=== PATIENT | female | born 1955 | race Caucasian/White ===

== ENCOUNTER 2016-12-25 15:01 | Inpatient (IN) | payer OTHER ==
[~2016-12-25] VITALS: Ht 156.2 cm; Wt 106.2 kg
[~2016-12-25 15:01] MED LIST: CETI10CA PO; CIPR500T94 PO; ESTR0.5T PO; FLUD0.1T PO; HYDR-971 PO; LEVO5TAB2 PO; METO1TAB PO; METO25PO2 MC; METR500T PO; NAPR500T3 PO; ONDA4TAB10 PO; TRAM50TA PO; flexeril
[2016-12-25 15:52] VITALS: BP 91/63
[2016-12-25] MEDS ORDERED: fentaNYL PF 100 MCG/2 ML VIAL IV PRN (16:00)
[2016-12-25 16:14] LABS: BASO % 0 % (0-3); EOS # 0.3 x10^3/uL (0.0-0.7); EOS % 2 % (0-3); HEMATOCRIT 39.4 % (36.0-47.0); HEMOGLOBIN 13.3 g/dL (12.0-15.5); LYMPH # 3.1 x10^3/uL (1.0-4.8); LYMPH % 24 % (24-48); MEAN CORPUSCULAR HEMOGLOBIN 29 pg (25-35); MEAN CORPUSCULAR HGB CONC 34 g/dL (31-37); MEAN CORPUSCULAR VOLUME 85 fL (79-100); MONO # 1.5 x10^3/uL (0.0-1.1); MONO % 12 % (0-9); NEUT % 62 % (31-73); PLATELET COUNT 296 x10^3/uL (140-400); RED BLOOD COUNT 4.63 x10^6/uL (3.50-5.40); RED CELL DISTRIBUTION WIDTH 12.9 % (11.5-14.5); WHITE BLOOD COUNT 12.9 x10^3/uL (4.0-11.0)
[2016-12-25 16:39] LABS: ALBUMIN 3.5 g/dL (3.4-5.0); ALBUMIN/GLOBULIN RATIO 0.9 (1.0-1.7); CALCIUM 8.9 mg/dL (8.5-10.1); CREATININE 0.7 mg/dL (0.6-1.0); GFR 85.4; POTASSIUM 3.7 mmol/L (3.5-5.1); TOTAL BILIRUBIN 1.1 mg/dL (0.2-1.0); TOTAL PROTEIN 7.2 g/dL (6.4-8.2)
[2016-12-25] MEDS ORDERED: OMEP40CA5 PO (16:46)
[2016-12-25] MEDS ORDERED: CYCL-331 PO (16:46)
[2016-12-25] MEDS ORDERED: METO25TA2 PO (16:46)
[2016-12-25] MEDS ORDERED: hydrocortisone PO ×2 (16:46)
[2016-12-25] MEDS ORDERED: ERGO500027 PO (16:46)
[2016-12-25] MEDS ORDERED: IOHEXOL 240 MG/ML 50ML VIAL. ONE (16:49)
[2016-12-25] MEDS: IV NORMAL SALINE 1,000ML 1,000 ML IV SCH (17:11)
[2016-12-25 17:15] VITALS: BP 91/63
[2016-12-25] MEDS ORDERED: ONDANSETRON PF 4 MG/2 ML VIAL. IV PRN (17:15)
--- NOTE | 2016-12-25 17:21 | NUR ---
Patient new admit to room 125. Chief complaint is nausea and abdominal pain. States has had flare with diverticulitis in past. Oriented to room, use of call light, and plan of care. Received verbalization of understanding, denies questions/needs. Will monitor.
[2016-12-25] MEDS ORDERED: ZOLPIDEM 5 MG TABLET. PO PRN (18:15)
[2016-12-25] MEDS ORDERED: IOHEXOL 300 MG/ML 75 ML VIAL. IV ONE (18:15)
[2016-12-25] MEDS ORDERED: IOHEXOL 240 MG/ML 50ML VIAL. PO ONE (18:15)
[2016-12-25] MEDS ORDERED: ENOXAPARIN 40 MG/0.4 ML DISP.SYRIN. SQ SCH (18:30)
[2016-12-25] MEDS ORDERED: IV NORMAL SALINE 1,000ML 1,000 ML IV SCH (18:30)
--- NOTE | 2016-12-25 18:51 | RAD ---
PROCEDURE CT abdomen and pelvis with contrast HISTORY Severe lower abdominal pain, history of diverticulitis, appendectomy, left lower quadrant abdominal pain TECHNIQUE Exposure: One or more of the following individualized dose reduction techniques were utilized for this exam: 1. Automated exposure control. 2. Adjustment of the mA and/or kV according to patient size. 3. Use of iterative reconstruction technique. Helical CT imaging abdomen and pelvis with 75 milliliters Omnipaque 350 intravenous contrast COMPARISON No priors available FINDINGS Abdomen: Small calcified granuloma right lung base. Hiatal hernia portion of the gastric fundus, and the gastric cardia. Liver, gallbladder, pancreas, spleen, adrenals and kidneys are unremarkable. No bowel obstruction. Appendectomy. Sigmoid colon diverticulitis with segmental concentric wall thickening and luminal narrowing with a inflamed thick-walled diverticulum along the mesenteric border, no pneumoperitoneum or abscess, there is surrounding inflammatory changes of the fat. No adenopathy. Bones unremarkable. Lower lumbar spine disc disease. Pelvis: Mild dependent pelvic fluid. Hysterectomy. Left ovary present. Ovaries likely mildly atrophic. Bladder, rectum and bones are unremarkable. IMPRESSION 1. Acute sigmoid colon diverticulitis with an inflamed diverticulum along the mesenteric wall of the sigmoid colon and marked wall thickening and surrounding inflammatory change. Given the degree of wall thickening an underlying colonic malignancy cannot be excluded. 2. Hiatal hernia. Electronically signed by: Enzo Reyez MD (December 25, 2016 18:49:54)
[2016-12-25 19:16] VITALS: BP 112/71
[2016-12-25] MEDS: CYCLOBENZAPRINE 10 MG TABLET. PO SCH (20:12)
[2016-12-25] MEDS: CIPROFLOXACIN 400MG PREMIX 200 ML IV SCH (20:14)
[2016-12-25] MEDS ORDERED: HYDROCORTISONE 10 MG TABLET PO SCH (21:00)
[2016-12-25 22:59] VITALS: BP 92/54
[2016-12-26 00:21] LABS: BACTERIA,URINE FEW /HPF (0-FEW); BILIRUBIN,URINE NEG (NEG); CLARITY,URINE CLEAR; COLOR,URINE YELLOW; GLUCOSE,URINE NEG (NEG); NITRITE,URINE NEG (NEG); RBC,URINE 0 /HPF (0-2); SQUAMOUS EPITHELIAL CELL,UR FEW /LPF; UROBILINOGEN,URINE 0.2 mg/dL (0.2 mg/dL); WBC,URINE OCC /HPF (0-4)
[2016-12-26] MEDS: IV NORMAL SALINE 1,000ML 1,000 ML IV SCH ×3 (03:40→20:50)
[2016-12-26 05:55] VITALS: BP 97/65
[2016-12-26 06:37] LABS: BASO % 0 % (0-3); EOS # 0.2 x10^3/uL (0.0-0.7); EOS % 2 % (0-3); HEMATOCRIT 35.9 % (36.0-47.0); HEMOGLOBIN 12.2 g/dL (12.0-15.5); LYMPH # 2.5 x10^3/uL (1.0-4.8); LYMPH % 26 % (24-48); MEAN CORPUSCULAR HEMOGLOBIN 29 pg (25-35); MEAN CORPUSCULAR HGB CONC 34 g/dL (31-37); MEAN CORPUSCULAR VOLUME 85 fL (79-100); MONO # 1.1 x10^3/uL (0.0-1.1); MONO % 12 % (0-9); NEUT % 61 % (31-73); PLATELET COUNT 238 x10^3/uL (140-400); RED BLOOD COUNT 4.21 x10^6/uL (3.50-5.40); RED CELL DISTRIBUTION WIDTH 12.7 % (11.5-14.5); WHITE BLOOD COUNT 9.8 x10^3/uL (4.0-11.0)
[2016-12-26 06:47] LABS: CALCIUM 8.3 mg/dL (8.5-10.1); CREATININE 0.7 mg/dL (0.6-1.0); GFR 85.4; POTASSIUM 3.6 mmol/L (3.5-5.1)
[2016-12-26] MEDS: FLUDROCORTISONE 0.1 MG TABLET PO SCH (07:52)
[2016-12-26] MEDS: PANTOPRAZOLE 40 MG TABLET. PO SCH (07:52)
[2016-12-26] MEDS: CIPROFLOXACIN 400MG PREMIX 200 ML IV SCH (07:53)
[2016-12-26] MEDS ORDERED: HYDROCORTISONE 20 MG TABLET. PO SCH (09:00)
[2016-12-26] MEDS: ENOXAPARIN 40 MG/0.4 ML DISP.SYRIN. SQ SCH ×2 (09:00→20:48)
--- NOTE | 2016-12-26 09:20 | NUR ---
PHARMACY DOSING NOTE: SCR=0.7 CRCL 98 BMI=43. Due to the BMI=43, the appropriate prophylactic dose for this patient is Lovenox 40mg SQ q12hrs. The patient's order has been changed to reflect this. Signed: 12/26/16 at 09 by AGUSTIN KIDD
[2016-12-26] MEDS ORDERED: ACETAMINOPHEN 500 MG TABLET PO PRN (10:00)
[2016-12-26] MEDS ORDERED: ACETAMINOPHEN 325 MG TABLET PO ONE (10:07)
[2016-12-26 10:13] VITALS: BP 119/67
[2016-12-26] MEDS ORDERED: PIPERACILLIN/TAZOBACTAM 3.375 GM in IV NORMAL SALINE 50ML 50 ML IV SCH (12:00)
[2016-12-26 15:19] VITALS: BP 95/61
[2016-12-26] MEDS: HYDROCORTISONE 10 MG TABLET PO SCH (15:56)
[2016-12-26] MEDS: PIPERACILLIN/TAZOBACTAM 3.375 GM in IV NORMAL SALINE 50ML 50 ML IV SCH (18:00)
[2016-12-26 18:02] VITALS: BP 106/68
[2016-12-26] MEDS: CYCLOBENZAPRINE 10 MG TABLET. PO SCH (20:48)
[2016-12-26] MEDS ORDERED: ENOXAPARIN 40 MG/0.4 ML DISP.SYRIN. SQ SCH (21:00)
[2016-12-26 23:35] VITALS: BP 116/77
[2016-12-27] MEDS ORDERED: PNEUMOCOCCAL VAX SCREEN. MC PRN (00:45)
[2016-12-27] MEDS: HYDROCORTISONE 20 MG TABLET. PO SCH (03:43)
[2016-12-27] MEDS: IV NORMAL SALINE 1,000ML 1,000 ML IV SCH ×2 (03:43→16:02)
[2016-12-27 05:08] VITALS: BP 124/79
[2016-12-27] MEDS: PIPERACILLIN/TAZOBACTAM 3.375 GM in IV NORMAL SALINE 50ML 50 ML IV SCH ×6 (05:35→23:33)
--- NOTE | 2016-12-27 05:43 | PN ---
DATE: 12/26/2016 SUBJECTIVE: A 61-year-old female in with severe diverticulitis that has been so severe, we switched over on antibiotic from the usual. She is still running a low-grade temp of 99.2 with the antibiotics. White counts have come down slightly from 13,000 down to 9. Otherwise, the patient says she is a little better, but she is still extremely tender in that left lower quadrant. We will go ahead and continue on IV antibiotic therapy Put her on piperacillin instead of the metronidazole and see if this does not give a better coverage for the severity of her diverticulitis. PHYSICAL EXAMINATION: VITAL SIGNS: Otherwise, blood pressure approximately 95/60, respiratory rate 20, pulse 80, temperature 99.1. GENERAL: The patient is alert and oriented. LUNGS: Clear. CARDIOVASCULAR: Stable. ABDOMEN: Exquisitely tender in that left lower quadrant area. IMPRESSION: Severe diverticulitis of the sigmoid area. PLAN: We will continue to monitor her accordingly at the situation and see how well the pain completes itself the IV piperacillin. ANTWAN ROSS MD DR: CARMELLA/alivia JOB#: [id number] / [id number]
[2016-12-27] MEDS: PANTOPRAZOLE 40 MG TABLET. PO SCH (08:57)
[2016-12-27] MEDS: FLUDROCORTISONE 0.1 MG TABLET PO SCH (08:58)
[2016-12-27] MEDS: ENOXAPARIN 40 MG/0.4 ML DISP.SYRIN. SQ SCH ×2 (09:00→20:15)
[2016-12-27] MEDS ORDERED: PNEUMOC CONJ VACC 23-VALENT 0.5 ML VIAL. VAX IM ONE ×2 (09:00)
[2016-12-27 10:28] VITALS: BP 112/80
[2016-12-27] MEDS: HYDROCORTISONE 10 MG TABLET PO SCH (15:59)
[2016-12-27 16:23] VITALS: BP 135/95
[2016-12-27 19:20] VITALS: BP 133/78
[2016-12-27] MEDS: METOPROLOL SUCC 24HR ER 25 MG TAB.ER.24H. PO SCH (20:14)
[2016-12-27] MEDS: CYCLOBENZAPRINE 10 MG TABLET. PO SCH (20:14)
[2016-12-27 23:21] VITALS: BP 124/78
[2016-12-28] MEDS: IV NORMAL SALINE 1,000ML 1,000 ML IV SCH ×3 (03:57→23:35)
[2016-12-28] MEDS: HYDROCORTISONE 20 MG TABLET. PO SCH (03:57)
[2016-12-28] MEDS: PIPERACILLIN/TAZOBACTAM 3.375 GM in IV NORMAL SALINE 50ML 50 ML IV SCH ×4 (05:25→23:34)
[2016-12-28 05:50] VITALS: BP 115/67
[2016-12-28 07:23] LABS: BASO % 0 % (0-3); EOS # 0.2 x10^3/uL (0.0-0.7); EOS % 4 % (0-3); HEMATOCRIT 33.4 % (36.0-47.0); HEMOGLOBIN 11.6 g/dL (12.0-15.5); LYMPH # 1.4 x10^3/uL (1.0-4.8); LYMPH % 23 % (24-48); MEAN CORPUSCULAR HEMOGLOBIN 29 pg (25-35); MEAN CORPUSCULAR HGB CONC 35 g/dL (31-37); MEAN CORPUSCULAR VOLUME 83 fL (79-100); MONO # 0.4 x10^3/uL (0.0-1.1); MONO % 7 % (0-9); NEUT % 66 % (31-73); PLATELET COUNT 252 x10^3/uL (140-400); RED BLOOD COUNT 4.01 x10^6/uL (3.50-5.40); RED CELL DISTRIBUTION WIDTH 12.9 % (11.5-14.5); WHITE BLOOD COUNT 6.1 x10^3/uL (4.0-11.0)
[2016-12-28 07:39] LABS: ALBUMIN 2.6 g/dL (3.4-5.0); ALBUMIN/GLOBULIN RATIO 0.8 (1.0-1.7); CALCIUM 8.2 mg/dL (8.5-10.1); CREATININE 0.6 mg/dL (0.6-1.0); POTASSIUM 3.2 mmol/L (3.5-5.1); TOTAL BILIRUBIN 0.9 mg/dL (0.2-1.0)
[2016-12-28] MEDS: PANTOPRAZOLE 40 MG TABLET. PO SCH (07:56)
[2016-12-28] MEDS: ENOXAPARIN 40 MG/0.4 ML DISP.SYRIN. SQ SCH ×2 (08:49→20:29)
[2016-12-28] MEDS: METOPROLOL SUCC 24HR ER 25 MG TAB.ER.24H. PO SCH (08:53)
[2016-12-28] MEDS: FLUDROCORTISONE 0.1 MG TABLET PO SCH (08:53)
--- NOTE | 2016-12-28 09:41 | PN ---
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 The patient did receive IV pain medication when first in, she is a little bit better; however, the patient is having problems still with that left lower quadrant pain, definitely improved, but certainly requiring IV antibiotic therapy as she is on chronic prednisone therapy for her Miguel's disease. PHYSICAL EXAMINATION: VITAL SIGNS: Otherwise, her blood pressure is 110/80, respiratory rate 20, pulse 80, afebrile. GENERAL: The patient is alert and oriented. LUNGS: Diminished throughout, but clear. CARDIOVASCULAR: Stable. ABDOMEN: Soft. There is definite tenderness in the left lower quadrant, although not quite as severe as it has been here when she first came in. It might also be noted that her blood pressure was markedly on the low side when she first came in, approximately 90/60 with a pulse of 93. She got one spike of temperature of 99.2, but otherwise has come down with the IV piperacillin and I will make further evaluation on her as indicated. Calcium also was slightly low as well. IMPRESSION: Severe diverticulitis of the sigmoid colon, history of [place]'s disease, chronic prednisone therapy, ____ therapy, hypotension, hypocalcemia, continue on IV antibiotics for now. ANTWAN ROSS MD DR: CARMELLA/alivia JOB#: [id number] / [id number]
[2016-12-28 11:59] VITALS: BP 148/80
--- NOTE | 2016-12-28 13:30 | RAD ---
Indication: Severe abdominal pain and left lower quadrant. Axial imaging through the abdomen and pelvis was performed after the administration of intravenous contrast. Comparison is made with prior CT from 12/25/2016. The lung bases are clear. There is a moderate-sized hiatal hernia. There are trace bilateral pleural effusions, new since 3 days earlier. The liver and gallbladder are unremarkable. The pancreas and spleen are unremarkable. No adrenal mass is identified. The kidneys are unremarkable. The aorta is nonaneurysmal. The bowel loops appear to be normal caliber. There is no ascites. Inflammatory changes surrounding the sigmoid colon persist consistent with acute diverticulitis. No fluid collection or abscess is identified. There is no bowel obstruction. The degree of inflammation may be slightly improved. The bladder is unremarkable. No lymphadenopathy is seen. Impression: Sigmoid diverticulitis, similar to perhaps slightly improved since 3 days ago. No abscess formation or bowel obstruction is identified. PQRS Compliance Statement: One or more of the following individualized dose reduction techniques were utilized for this examination: 1. Automated exposure control 2. Adjustment of the mA and/or kV according to patient size 3. Use of iterative reconstruction technique
[2016-12-28 15:19] VITALS: BP 139/80
[2016-12-28] MEDS: HYDROCORTISONE 10 MG TABLET PO SCH (16:08)
[2016-12-28 19:33] VITALS: BP 125/70
[2016-12-28] MEDS ORDERED: POTASSIUM CHLORIDE 20 MEQ TABLET.ER. PO ONE (20:00)
[2016-12-28] MEDS: CYCLOBENZAPRINE 10 MG TABLET. PO SCH (20:29)
[2016-12-29] MEDS: HYDROCORTISONE 20 MG TABLET. PO SCH (04:03)
[2016-12-29] MEDS: PIPERACILLIN/TAZOBACTAM 3.375 GM in IV NORMAL SALINE 50ML 50 ML IV SCH (05:27)
[2016-12-29 05:45] VITALS: BP 136/74
[2016-12-29 08:23] VITALS: BP 136/74
[2016-12-29] MEDS: FLUDROCORTISONE 0.1 MG TABLET PO SCH (08:23)
[2016-12-29] MEDS: IV NORMAL SALINE 1,000ML 1,000 ML IV SCH (08:23)
[2016-12-29] MEDS: METOPROLOL SUCC 24HR ER 25 MG TAB.ER.24H. PO SCH (08:23)
[2016-12-29] MEDS: ENOXAPARIN 40 MG/0.4 ML DISP.SYRIN. SQ SCH (08:23)
[2016-12-29] MEDS: PANTOPRAZOLE 40 MG TABLET. PO SCH (08:23)
[2016-12-29] MEDS ORDERED: CLIN300C3 PO (10:04)
[2016-12-29] MEDS ORDERED: OMEP40CA5 PO (10:04)
[2016-12-29] MEDS ORDERED: LEVO500T59 PO (10:04)
--- NOTE | 2016-12-29 11:11 | NUR ---
Patient dismissed to home. IV site d/c'd per protocol without difficulty. Reviewed home medications, follow-up instructions, and reasons to seek immediate medical attention with patient. Received verbalization of understanding, denies questions/needs. Patient ambulated off unit independently.
--- NOTE | 2016-12-29 19:53 | PN ---
DATE: 12/28/2016 SUBJECTIVE: This is a 61-year-old female with a history of Minto's disease. She has been on chronic prednisone, came in with severe diverticulitis. The patient is still having quite a bit of pain today, although improved. She is on IV piperacillin, noted she had been having some diarrhea. OBJECTIVE: VITAL SIGNS: Blood pressure 139/80, respiratory rate 20, pulse 60, afebrile. GENERAL: Alert and oriented, feels a little bit stronger. LUNGS: Diminished, but clear. CARDIOVASCULAR: Regular sinus rhythm. ABDOMEN: Soft. 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 Repeated CT scan to make sure there was not any formation of an abscess, perforation and alike in any case. EXTREMITIES: No clubbing, cyanosis, or edema. No rash is noted. NEUROLOGIC: Her speech is fluent, spontaneous, appropriate. Cranial nerves 2-12 grossly intact. LABORATORY DATA: White count 6, hemoglobin 11 and hematocrit 34. Chemistries are basically stable again except for low potassium of 3.2, calcium slightly low at 8.2, but may be pseudohypocalcemia, low albumin of 2.6. Liver enzymes are stable. In any case, the patient is making fairly good progress. CT scan demonstrates sigmoid diverticulitis, slightly improved according to the CT scan. IMPRESSION: Diverticulitis, Minto's disease, chronic prednisone therapy, hypotension, hypocalcemia, pseudohypocalcemia, [id number] protein malnutrition. ANTWAN ROSS MD DR: CARMELLA/alivia JOB#: [id number] / [id number]
== END 2016-12-29 11:14 | disposition home or self-care (01) | DRG 872 ==
LOC: 1 SOUTH 15:35
PROVIDERS: ADMIT Family Medicine; ATTEND Family Medicine
DX: A41.9 Sepsis, unspecified organism (principal); K57.32 Diverticulitis of large intestine without perforation or abscess without bleeding; E44.0 Moderate protein-calorie malnutrition; E27.1 Primary adrenocortical insufficiency; Z68.41 Body mass index [BMI] 40.0-44.9, adult; N39.0 Urinary tract infection, site not specified; I95.9 Hypotension, unspecified; K52.89 Other specified noninfective gastroenteritis and colitis; B95.2 Enterococcus as the cause of diseases classified elsewhere; E83.51 Hypocalcemia; M79.7 Fibromyalgia; Z79.52 Long term (current) use of systemic steroids; Z90.710 Acquired absence of both cervix and uterus; K52.9 Noninfective gastroenteritis and colitis, unspecified
CPT/HCPCS: 36415; 74177; 80048; 80053; 81001; 82150; 83605; 83690; 85027; 87086; 87324; 90732; J0744; J1650; J2405; J2543; J3010; J3490; Q9966; Q9967; J7030

== ENCOUNTER 2017-08-23 16:27 | Emergency (ER) | payer OTHER ==
[~2017-08-23] VITALS: Ht 154.9 cm; Wt 106.6 kg
[~2017-08-23 16:27] MED LIST changes: +CLIN300C3 PO; +CYCL-331 PO; +ERGO500027 PO; +LEVO500T59 PO; -METO1TAB PO; +METO1TAB26 PO; +METO25TA2 PO; -NAPR500T3 PO; +NAPR500T4 PO; +OMEP40CA5 PO; +hydrocortisone PO
[2017-08-23] MEDS ORDERED: IV NORMAL SALINE 1,000ML 1,000 ML IV SCH (16:53)
[2017-08-23] MEDS ORDERED: IOHEXOL 240 MG/ML 50ML VIAL. ONE (16:56)
--- NOTE | 2017-08-23 17:08 | PHYS DOC ---
Past History Past Medical History: Diverticulitis, Fibromyalgia, Other Additional Past Medical Histor: renal insufficiency Past Surgical History: Appendectomy, Hysterectomy, Knee Replacement, Tonsillectomy Additional Past Surgical Histo: breast bx foot surgery Smoking: Non-smoker Alcohol Use: None Drug Use: None Adult General Chief Complaint Chief Complaint: ABDOMINAL PAIN HPI HPI 61-year-old male patient with history of diverticulitis complaining of suprapubic and lower abdominal pain since yesterday as a constant aching pain with episode of cramping pain that gradually getting worse. Patient complaining of nausea and anorexia and subjective fever. Patient states she had frequent bowel movement yesterday without having diarrhea area is vomiting, chest pain, shortness of breath, cough and congestion, sick contact. Patient states she had the same problem with her previous episodes of diverticulitis. Patient had history of abdominal insufficiency and took double dose of medication this morning because of nausea and abdominal pain. Review of Systems Review of Systems Constitutional: Reports subjective fever and chills] Eyes: Denies change in visual acuity, redness, or eye pain [] HENT: Denies nasal congestion or sore throat [] Respiratory: Denies cough or shortness of breath [] Cardiovascular: No additional information not addressed in HPI [] GI: Reports abdominal pain, nausea, denies vomiting, bloody stools or diarrhea [ ] : Denies dysuria or hematuria [] Musculoskeletal: Denies back pain or joint pain [] Integument: Denies rash or skin lesions [] Neurologic: Denies headache, focal weakness or sensory changes [] Endocrine: Denies polyuria or polydipsia [] All other systems were reviewed and found to be within normal limits, except as documented in this note. Current Medications Current Medications Current Medications Medications (Trade) Dose Ordered Sig/Gifty Start Time Stop Time Status Last Admin Dose Admin Iohexol (Omnipaque 240 Mg/ml) 50 ml STK-MED ONCE 08/23/17 16:56 08/23/17 16:57 DC Ketorolac Tromethamine (Toradol) 30 mg 1X ONCE 08/23/17 17:25 08/23/17 17:26 Ondansetron HCl (Zofran) 4 mg 1X ONCE 08/23/17 17:25 08/23/17 17:26 Sodium Chloride 1,000 ml @ 1,000 mls/hr Q1H 08/23/17 16:53 08/23/17 17:52 Allergies Allergies Allergies Coded Allergies Type Severity Reaction Last Updated Verified No Known Drug Allergies 07/22/13 No Physical Exam Physical Exam Constitutional: Well developed, well nourished, moderate distress, non-toxic appearance, febrile temperature 100.2. [] HENT: Normocephalic, atraumatic, bilateral external ears normal, oropharynx moist, no oral exudates, nose normal. [] Eyes: PERRLA, EOMI, conjunctiva normal, no discharge. [] Neck: Normal range of motion, no tenderness, supple, no stridor. [] Cardiovascular:Heart rate regular rhythm, no murmur [] Lungs & Thorax: Bilateral breath sounds clear to auscultation [] Abdomen: Bowel sounds normal, soft, no masses, no pulsatile masses, left lower quadrant tenderness and guarding. [] Skin: Warm, dry, no erythema, no rash. [] Back: No tenderness, no CVA tenderness. [] Extremities: No tenderness, no cyanosis, no clubbing, ROM intact, no edema. [] Neurologic: Alert and oriented X 3, normal motor function, normal sensory function, no focal deficits noted. [] Psychologic: Affect normal, judgement normal, mood normal. [] EKG EKG [] Radiology/Procedures Radiology/Procedures [CT abdomen pelvis: Findings of mild sigmoid diverticulitis per radiology report.] Course & Med Decision Making Course & Med Decision Making Pertinent Labs and Imaging studies are pending. Evaluation of the patient in ER showed 61-year-old male patient with history of diverticulitis complaining of abdominal pain and nausea since yesterday. Patient had left lower quadrant guarding and tenderness. CT abdomen and pelvis is pending. Patient's care transferred to Dr. Berkowitz at 180 Patient tolerates oral intake. Abdomen soft, nonsurgical. CT finding consistent with early mild diverticulitis. Will attempts outpatient therapy with close PCP follow-up. Return precautions reviewed. Patient verbalizes understanding and agreement discharge instructions prior to departure Dragon Disclaimer Dragon Disclaimer This electronic medical record was generated, in whole or in part, using a voice recognition dictation system. Departure Departure: Impression: Primary Impression: Abdominal pain Referrals: ANTWAN ROSS MD (PCP) ROSINA RYAN MD Aug 23, 2017 17:08 ANISH BERKOWITZ DO Aug 24, 2017 03:21
[2017-08-23 17:22] LABS: BASO % 0 % (0-3); EOS # 0.4 x10^3/uL (0.0-0.7); EOS % 4 % (0-3); HEMATOCRIT 38.5 % (36.0-47.0); HEMOGLOBIN 13.1 g/dL (12.0-15.5); LYMPH # 2.8 x10^3/uL (1.0-4.8); LYMPH % 28 % (24-48); MEAN CORPUSCULAR HEMOGLOBIN 29 pg (25-35); MEAN CORPUSCULAR HGB CONC 34 g/dL (31-37); MEAN CORPUSCULAR VOLUME 85 fL (79-100); MONO # 1.1 x10^3/uL (0.0-1.1); MONO % 11 % (0-9); NEUT # 5.8 x10^3uL (1.8-7.7); NEUT % 57 % (31-73); PLATELET COUNT 244 x10^3/uL (140-400); RED BLOOD COUNT 4.55 x10^6/uL (3.50-5.40); WHITE BLOOD COUNT 10.2 x10^3/uL (4.0-11.0)
[2017-08-23] MEDS ORDERED: KETOROLAC 30 MG/ML VIAL. IV ONE (17:25)
[2017-08-23] MEDS ORDERED: ONDANSETRON PF 4 MG/2 ML VIAL. IV ONE (17:25)
[2017-08-23 17:33] LABS: ALBUMIN 3.6 g/dL (3.4-5.0); ALBUMIN/GLOBULIN RATIO 1.2 (1.0-1.7); CREATININE 0.7 mg/dL (0.6-1.0); GFR 85.4; POTASSIUM 4.1 mmol/L (3.5-5.1); TOTAL BILIRUBIN 0.9 mg/dL (0.2-1.0); TOTAL PROTEIN 6.7 g/dL (6.4-8.2)
[2017-08-23 17:34] LABS: COLOR,URINE STRAW
[2017-08-23 17:35] LABS: BACTERIA,URINE 0 /HPF (0-FEW); BILIRUBIN,URINE NEG (NEG); CLARITY,URINE CLEAR; GLUCOSE,URINE NEG (NEG); NITRITE,URINE NEG (NEG); SQUAMOUS EPITHELIAL CELL,UR MANY /LPF; UROBILINOGEN,URINE 0.2 mg/dL (0.2 mg/dL); WBC,URINE OCC /HPF (0-4)
[2017-08-23] MEDS ORDERED: IOHEXOL 300 MG/ML 75 ML VIAL. IV ONE (17:40)
--- NOTE | 2017-08-23 18:55 | RAD ---
CT scan of the abdomen and pelvis with contrast 08/23/2017 CLINICAL HISTORY: Left lower quadrant abdominal pain with nausea. TECHNIQUE: After the oral administration of contrast and the intravenous administration 75 cc of Omnipaque 300, contiguous, 5 mm axial sections were obtained through the abdomen and pelvis. One or more of the following individualized dose reduction techniques were utilized for this study: 1. Automated exposure control. 2. Adjustment of the mA and/or kV according to patient size. 3. Use of iterative reconstruction technique. FINDINGS: Comparison study is dated 12/28/2016. Images through the lung bases demonstrate mild cardiomegaly. There is a moderate sized sliding hiatal hernia. Minimal dependent subsegmental atelectasis is seen bilaterally. A 2 mm calcified granuloma is seen involving the right middle lobe. The liver, spleen, pancreas, adrenal glands and kidneys are within normal limits. Mild atherosclerotic calcification of the abdominal aorta is seen. The abdominal aorta tapers normally. The gallbladder is slightly contracted. No free fluid or free air is seen within the abdomen. There is no evidence of bowel obstruction. Air and stool is seen throughout the colon. Multiple diverticula are seen involving the sigmoid colon. Focal wall thickening is seen involving the mid sigmoid colon. Increased density is seen within the adjacent fat. These findings are consistent with diverticulitis. No abscess is seen. Images through the pelvis demonstrate the urinary bladder distended with urine. Calcifications are seen within the pelvis consistent with phleboliths. Small amount of free fluid is seen within the pelvis. Very mild S-shaped curvature of the thoracolumbar spine is noted. Degenerative changes involving lower thoracic and throughout the lumbar spine and both hips. IMPRESSION: Findings consistent with sigmoid diverticulitis. No abscess is seen. Electronically signed by: Jeremias Valdez MD (08/23/2017 6:52 PM) [facility]
[2017-08-23] MEDS ORDERED: CIPROFLOXACIN HCL 500 MG TABLET PO ONE (19:15)
[2017-08-23] MEDS ORDERED: ONDANSETRON ODT 4 MG TAB.RAPDIS PO ONE (19:15)
[2017-08-23] MEDS ORDERED: metroNIDAZOLE 500 MG TABLET PO ONE (19:15)
[2017-08-23] MEDS ORDERED: ONDANSETRON 4MG ODT 4TABLET STARTPACK. PO ONE (19:15)
[2017-08-23 19:30] VITALS: BP 137/74
== END 2017-08-23 19:35 | disposition home or self-care (01) ==
LOC: ER 16:27
DX: R10.32 Left lower quadrant pain (principal); M79.7 Fibromyalgia; Z90.49 Acquired absence of other specified parts of digestive tract; Z90.710 Acquired absence of both cervix and uterus
CPT/HCPCS: 36415; 74177; 80053; 81001; 83605; 83690; 84484; 85025; 87040; 96361; 96374; 96375; 99285; J1885; J2405; Q0162; Q9967; J7030

== ENCOUNTER → 2017-11-09 | Outpatient (CLI) | payer OTHER ==
[~2017-11-09] MED LIST changes: +NAPR-514 PO; -NAPR500T4 PO
--- NOTE | 2017-11-09 14:35 | RAD ---
Cervical spine, 5 views, 11/09/2017: History: Neck pain, degenerative disease. There is moderate disc space narrowing at C5-6 and C6-7 with moderate marginal spurring. Smaller scattered spurs are seen in other portions of the cervical spine. There are mild degenerative changes involving scattered facet joints bilaterally. The combination of findings is causing moderate right foraminal encroachment at C5-6. No acute fracture or dislocation is identified. No prevertebral soft tissue swelling is seen. IMPRESSION: 1. Moderate multilevel degenerative change, worst at the C5-6 level. 2. No acute bony abnormality is detected.
== END | disposition home or self-care (01) ==
LOC: DXRAD 13:15
PROVIDERS: ATTEND Psychiatry & Neurology Neurology
DX: M47.892 Other spondylosis, cervical region (principal); M48.02 Spinal stenosis, cervical region; G89.29 Other chronic pain
CPT/HCPCS: 72050